=== PATIENT | female | born 1970 | race Caucasian/White ===

== ENCOUNTER → 2018-08-08 | Day surgery (SDC) | payer OTHER ==
[~2018-08-08] MED LIST: CALCIUM CARBON500 MG PO; DEXILANT30 MG PO; DICYCLOMINE HCL20 MG PO; FENTANYL CITRATE/PF 100MCG/2 ML INJ ONE; FERROUS SULFAT325 M1 PO; FISH OIL PO; FLONASE INH; GABAPENTIN PO; GLUCAGON FOR INJ 1 MG VIAL ONE; HYOSCYAMINE SULFATE 0.5 MG/ML INJ ONE; MELOXICAM7.5 MG PO; METHOCARBAMOL500 MG PO; METOCLOPRAMIDE HCL 10 MG/2ML VIAL ONE; MIDAZOLAM HCL 2 MG/2 ML VIAL ONE; MULTI-VITAMIN1 EACH PO; NEXIUM40 MG PO; ONDANSETRON HCL INJ 2MG/ML 2ML 2 MG/ML VIAL ONE; PROMETHAZINE HCL (IM) 25 MG/ML VIAL ONE; PROPOFOL IV EMULSION 10 MG/ML 20 ML VIAL ONE; PROPOFOL IV EMULSION 10 MG/ML 50 ML VIAL ONE; SM NATURAL BAL100 MG PO; TYLENOL EXTRA500 MG PO; VIT C PO; VIT D3 PO; VITAMIN B-122500 MCG PO; VITAMIN E400 UNI1 PO; VSL#3 CAPSULE1 EACH PO; WELLBUTRIN XL300 MG PO; ZYRTEC10 MG PO; [UNRECOGNIZED DRUG - OTHER] PO
--- OUTSIDE RECORDS SUMMARY | 2018-08-08 12:04 | XMS REPORT ---
Author Author [facility] Address Unknown Phone Unavailable Care Team Providers Care Chute Operator Name Role Phone Unavailable Unavailable Problems This patient has no known problems. Allergies, Adverse Reactions, Alerts This patient has no known allergies or adverse reactions. Medications This patient has no known medications. Results Test Description Test Time Test Comments Text Results Atomic Results Result Comments SCR MAMM BILATERAL [place] CAD DIGITAL 2018-03-07 10:05:25 - SCR MAMM BILATERAL [place] CAD DIGITALBILATERAL DIGITAL SCREENING MAMMOGRAM 3D/2D WITH CAD: 03/05/2018CLINICAL: Asymptomatic. Digital breast tomosynthesis was performed in addition to routine CC and MLO views. Current mammographic images were evaluated by either a [employer] M-Vu or a [employer] ImageChecker CAD (computer aided detection system). Comparison is made to exams dated 03/04/2017 mammogram, mammogram, and 12/23/2014 mammogram - [facility]. There are scattered fibroglandular tissues in both breasts. No suspicious mass, architectural distortion, malignant type calcification, or lymph node abnormality detected. Breast architecture is stable compared to prior exams.IMPRESSION: NEGATIVEThere is no mammographic evidence of malignancy. Resume annual screening mammography in one year. Ines carney/penrad:03/07/2018 10:05:25 Surface Water Manager: Laurie PRAKASH, [facility] sent: BIRADS 1-2 Normal Mammogram BI-RADS: 1 Negative
[2018-08-08 17:30] VITALS: BP 115/75
--- NOTE | 2018-08-08 18:10 | Operative Report ---
DATE OF PROCEDURE: 08/08/2018 SURGEON: Dirk Portillo MD PROCEDURES: Esophagogastroduodenoscopy with biopsies and colonoscopy with polypectomy and biopsies. INDICATIONS FOR EGD: Upper abdominal pain, nausea. INDICATIONS FOR COLONOSCOPY: Surveillance colonoscopy, personal history of colon polyps, constant urge to defecate. MEDICATIONS: The patient was done under MAC, please see anesthesiologist's note. PROCEDURE IN DETAIL: With the patient in left lateral decubitus position, flexible fiberoptic Olympus gastroscope was introduced into the esophagus under direct visualization without any difficulty. There were some erosions noted in the distal esophagus. The scope was then advanced with ease into the stomach traversing a small hiatal hernia. The patient is apparently status post gastric sleeve. A minute nodule was noted in the upper body of the stomach and that was biopsied. Mucosa overlying the antrum revealed some patchy erythema and [id number] edema and biopsies were obtained and sent to stain for H pylori. Pylorus was of normal contour and shape, it was intubated with ease and the scope was advanced all the way to the second portion of the duodenum. Biopsies were obtained from the proximal second portion and duodenal bulb to rule out sprue. The scope was then withdrawn back into the stomach and retroflexed and the previously described hiatal hernia was also noted in the retroflexed position. The scope was then straightened out, it was subsequently withdrawn. The patient tolerated the procedure well. IMPRESSION: 1. Distal erosive esophagitis. 2. Moderate-sized hiatal hernia. 3. Status post gastric sleeve. 4. Nodule proximal body, biopsied. 5. Gastritis, biopsied, biopsies sent to stain for Helicobacter pylori. 6. Rule out sprue. PLAN: Follow up histology. Increase Nexium to 40 mg one p.o. a.c. b.i.d. PROCEDURE IN DETAIL: The patient was then turned around after adequate lubrication of the anal canal, a flexible fiberoptic Olympus colonoscope was inserted into the rectum with ease and advanced all the way to the cecum. Mucosa overlying the cecum appeared to be within normal limits. The ileocecal valve was intubated and the scope was advanced into the terminal ileum. Biopsies were obtained. The scope was then withdrawn back into the colon. It was then withdrawn slowly and mucosa overlying the ascending, transverse grossly appeared to be within normal limits as whatever was visualized in the descending colon. Two polyps were hot biopsied from the sigmoid colon. Three polyps were hot biopsied from the rectum. There were some patchy mild inflammatory changes noted in the rectum and biopsies were obtained. The scope was then retroflexed into the distal rectum and small internal hemorrhoids were noted, none of which was actively bleeding. The scope was then straightened out, it was subsequently withdrawn. The patient tolerated the procedure well. IMPRESSION: 1. Sigmoid colon polyps x2, hot biopsied. 2. Rectal polyps x3, hot biopsied. 3. Proctitis, mild, biopsies obtained. 4. Internal hemorrhoids, none actively bleeding. PLAN: Follow up histology. Initiate high-fiber, low-fat diet. Initiate high-fiber supplement. Start VSL#3 one p.o. daily. The patient might benefit from a followup colonoscopy in 3 to 5 years. Dirk Portillo MD [facility] /[id number] cc: Chintan Renteria MD
== END | disposition home or self-care (01) ==
LOC: ENDO 12:02
PROVIDERS: ATTEND Internal Medicine Gastroenterology
DX: K21.0 Gastro-esophageal reflux disease with esophagitis (principal); K63.5 Polyp of colon; K62.1 Rectal polyp; K29.70 Gastritis, unspecified, without bleeding; K22.10 Ulcer of esophagus without bleeding; K44.9 Diaphragmatic hernia without obstruction or gangrene; Z98.84 Bariatric surgery status; K31.89 Other diseases of stomach and duodenum; K62.89 Other specified diseases of anus and rectum; K64.8 Other hemorrhoids; R03.0 Elevated blood-pressure reading, without diagnosis of hypertension
CPT/HCPCS: 43239; 45380; 45384; 81025; J1610; J1980; J2250; J2405; J2550; J2704 ×2; J2765; 45378; 45385; J3010

== ENCOUNTER 2018-10-05 10:08 | Observation (INO) | payer OTHER ==
[2018-10-03 09:52] LABS: BILIRUBIN,URINE NEGATIVE (NEGATIVE); CLARITY,URINE CLEAR (CLEAR); COLOR,URINE YELLOW (YELLOW); KETONES,URINE NEGATIVE (NEGATIVE); LEUKOCYTE ESTERASE ,URINE NEGATIVE (NEGATIVE); NITRITE,URINE NEGATIVE (NEGATIVE); PROTEIN,URINE DIPSTICK NEGATIVE (NEGATIVE); URINE UROBILINOGEN 0.2 mg/dL (0.2 - 1)
[2018-10-03 09:54] LABS: EOSINOPHILS # (AUTO) 0.1 (0.0-0.4); EOSINOPHILS % 1.7 % (0.0-6.0); HEMATOCRIT 34.2 % (34.2-44.1); HEMOGLOBIN 11.7 g/dL (12.0-16.0); LYMPHOCYTES # (AUTO) 1.4 (1.0-3.2); LYMPHOCYTES % 35.1 % (18.0-39.1); MEAN CORPUSCULAR HGB CONC 34.2 g/dL (31-35); MEAN CORPUSCULAR VOLUME 93.4 fL (81-99); MONOCYTES # (AUTO) 0.3 (0.2-0.8); MONOCYTES % 7.2 % (4.4-11.3); NEUTROPHILS # (AUTO) 2.2 (2.1-6.9); NEUTROPHILS % 54.8 % (38.7-80.0); PLATELET COUNT 188 x10e3/uL (140-360); RED BLOOD COUNT 3.66 x10e6/uL (3.6-5.1); RED CELL DISTRIBUTION WIDTH 12.3 % (11.7-14.4)
[2018-10-03 10:10] LABS: ANION GAP 12.3 mmol/L (8-16); BLOOD UREA NITROGEN 15 mg/dL (7-26); BUN/CREATININE RATIO 20 (6-25); CALCIUM 9.8 mg/dL (8.4-10.2); CARBON DIOXIDE 29 mmol/L (22-29); CHLORIDE 102 mmol/L (98-107); CREATININE, SERUM 0.75 mg/dL (0.57-1.11); EST GLOMERULAR FILTRATION RATE > 60 ML/MIN (60-); GLUCOSE 77 mg/dL (74-118); POTASSIUM 4.3 mmol/L (3.5-5.1); SODIUM 139 mmol/L (136-145)
--- NOTE | 2018-10-03 11:38 | Diagnostic Imaging Report ---
EXAM: CHEST 2 VIEWS DATE: 10/03/2018 9:19 AM INDICATION: Gynecologic surgery ^PRE-OP ORDERS ^[id number] ^[id number] COMPARISON: None FINDINGS: Lines and tubes: None Heart size normal. No focal pulmonary opacity, pleural effusion or pneumothorax. Upper abdomen unremarkable. There are surgical clips in the upper abdomen. There is partially visualized cervical spine fusion hardware. Metallic anchors are seen in the right humeral head. IMPRESSION: No evidence for acute disease. Signed by: Dr. Kamran Reynolds M.D. on 10/03/2018 11:35 AM
[~2018-10-05] VITALS: Ht 162.6 cm; Wt 68.0 kg
[~2018-10-05 10:08] MED LIST changes: -FENTANYL CITRATE/PF 100MCG/2 ML INJ ONE; -GLUCAGON FOR INJ 1 MG VIAL ONE; -HYOSCYAMINE SULFATE 0.5 MG/ML INJ ONE; -METOCLOPRAMIDE HCL 10 MG/2ML VIAL ONE; -MIDAZOLAM HCL 2 MG/2 ML VIAL ONE; -ONDANSETRON HCL INJ 2MG/ML 2ML 2 MG/ML VIAL ONE; -PROMETHAZINE HCL (IM) 25 MG/ML VIAL ONE; -PROPOFOL IV EMULSION 10 MG/ML 20 ML VIAL ONE; -PROPOFOL IV EMULSION 10 MG/ML 50 ML VIAL ONE
[2018-10-05] MEDS ORDERED: VASOPRESSIN INJ 20 UNIT/ML VIAL ONE (11:00)
[2018-10-05] MEDS ORDERED: LIDOCAINE HCL 1% 2 ML AMP ONE (11:03)
[2018-10-05] MEDS: CEFAZOLIN SOD 1 GM/NS 50ML 100 ML IV ONE (11:15)
[2018-10-05] MEDS ORDERED: BUPIVACAINE 0.25%/EPI 30ML SDV INJ ONE (11:35)
[2018-10-05] MEDS ORDERED: ESTROGENS CONJUGATED VAGINAL CR 45 GM TUBE PV ONE (11:35)
[2018-10-05] MEDS ORDERED: SODIUM CHLORIDE 0.9% INJ 10 ML VIAL ONE (13:27)
[2018-10-05] MEDS ORDERED: IBUPROFEN 800MG/ 250ML 250 ML IV ONE (13:54)
[2018-10-05] MEDS ORDERED: MEPERIDINE HCL INJ 25 MG/ML VIAL ONE (15:45)
[2018-10-05] MEDS ORDERED: FENTANYL CITRATE/PF 100MCG/2 ML INJ ONE ×2 (15:51→18:46)
[2018-10-05] MEDS ORDERED: SIMETHICONE 80 MG CHEW PO PRN (16:00)
[2018-10-05] MEDS ORDERED: KETOROLAC TROMETHAMINE 30 MG/ML VIAL IV PRN (16:00)
[2018-10-05] MEDS ORDERED: FLONASE INH SCH (16:00)
[2018-10-05] MEDS ORDERED: DOCUSATE SODIUM 100 MG CAP PO PRN (16:00)
[2018-10-05] MEDS ORDERED: ONDANSETRON HCL INJ 2MG/ML 2ML 2 MG/ML VIAL IV PRN (16:00)
[2018-10-05] MEDS ORDERED: DIPHENHYDRAMINE HCL 25 MG CAP PO PRN (16:00)
[2018-10-05] MEDS ORDERED: BISACODYL 10 MG SUPP PR PRN (16:00)
[2018-10-05 16:24] VITALS: BP 109/50
[2018-10-05] MEDS ORDERED: MORPHINE SULFATE INJ 4 MG/ML INJ 1ML IM PRN (16:45)
[2018-10-05] MEDS: D5.45%NS/KCL 20MEQ 1,000 ML IV SCH (16:52)
[2018-10-05] MEDS ORDERED: FLUTICASONE PROPIONATE NASAL SPRAY NS PRN (17:00)
[2018-10-05] MEDS: LACT CMB2 PO SCH (17:06)
[2018-10-05] MEDS: S THERMOPHL PO SCH (17:06)
[2018-10-05] MEDS: BIF CMB1 PO SCH (17:06)
[2018-10-05 17:20] VITALS: BP 109/50
[2018-10-05 17:29] VITALS: BP 109/50
[2018-10-05] MEDS ORDERED: MIDAZOLAM HCL 2 MG/2 ML VIAL ONE (18:46)
[2018-10-05] MEDS ORDERED: NEOSTIGMINE 5 MG/5ML SYR ONE (18:52)
[2018-10-05] MEDS ORDERED: SEVOFLURANE INHAL SOLN 250 ML PEN BTL ONE (18:52)
[2018-10-05] MEDS ORDERED: GLYCOPYRROLATE INJ 1MG/ 5 ML SYR ONE (18:52)
[2018-10-05] MEDS ORDERED: LIDOCAINE HCL 2% LOCAL INJ 5 ML SDV VIAL INJ ONE (18:52)
[2018-10-05] MEDS ORDERED: PROPOFOL IV EMULSION 10 MG/ML 20 ML VIAL ONE (18:52)
[2018-10-05] MEDS ORDERED: ONDANSETRON HCL INJ 2MG/ML 2ML 2 MG/ML VIAL ONE (18:52)
[2018-10-05] MEDS ORDERED: DEXAMETHASONE SOD PHOS INJ 4 MG/ML VIAL ONE (18:52)
[2018-10-05] MEDS ORDERED: ROCURONIUM BROMIDE 10 MG/ML 5ML VIAL ONE (18:52)
--- NOTE | 2018-10-05 18:58 | Operative Report ---
DATE OF PROCEDURE: 10/05/2018 SURGEON: Jose M Bhatt MD PREOPERATIVE DIAGNOSES: Abnormal uterine bleeding, dysmenorrhea, failed endometrial ablation. POSTOPERATIVE DIAGNOSES: Abnormal uterine bleeding, dysmenorrhea, failed endometrial ablation. TITLE OF PROCEDURE: Total laparoscopic hysterectomy, bilateral salpingectomy. No oophorectomy was performed. DECK AND HULL ASSEMBLER CO-SURGEON: Dr. Wojciech Valencia. ANESTHESIA: General with Dr. Marley and Barney, assistant sales manager. INDICATION FOR THE OPERATION: The patient is a 47-year-old 3, para 2-0-1-2 with last menstrual period October 01, 2018, who presents with a history of abnormal uterine bleeding, dysmenorrhea, who underwent endometrial ablation and hysteroscopic myomectomy on February 06, 2015, who presents now with a history of continued abnormal bleeding and continued dysmenorrhea. She therefore requests laparoscopic hysterectomy secondary to failed ablation of the endometrium. She is to undergo laparoscopic hysterectomy and bilateral salpingectomy. She does not want the ovaries removed. She was therefore taken to the operating room at this time. FINDINGS OF SURGERY: There was 8-week size mobile uterus. No adhesions noted despite multiple upper abdominal surgeries and there was normal tubes and ovaries. DESCRIPTION OF PROCEDURE: The patient was taken to the operating room, placed on the table in supine position. General anesthesia was administered. The patient was placed in the lithotomy position. The perineum was prepared and draped in usual sterile manner as was the abdomen. A Jeffers catheter was placed. The bladder for constant drainage. Pelvic exam revealed an 8-week size mobile anteverted uterus. No adnexal masses. The cervix was grasped with single-tooth tenaculum. A large VCare device was placed over the cervix for manipulation. The balloon was blown up and then it was apparent that the VCare was in place, the dowel sticker operator changed gloves. We proceeded to laparoscopy. A small incision was made just inferior to the umbilicus in the midline. The Veress needle was inserted through the incision into the peritoneal cavity. Pneumoperitoneum was created by insufflation of 4 L of carbon dioxide gas and a filling pressure of 8-10 mmHg. The Veress needle was removed and the trocar was inserted through the incision into the peritoneal cavity. The trocar was removed. The laparoscope was placed with confirmation of the peritoneal cavity being entered. Second trocar was placed in the right lower quadrant under direct visualization by laparoscopy. These two trocars were 5 mm and then a 10 mm trocar was placed in the left lower quadrant under direct visualization by laparoscopy. The probes were placed and the contents of the abdomen and pelvis were visualized with the findings of 8-week size mobile uterus, normal tubes and ovaries. Attention was then turned to the mesosalpinx on the left. The LigaSure instrument was then used to clamp the mesosalpinx, coagulating and cutting until the entire tube was from the ovary and then we clamped along the broad ligament and then coagulated and cut and then the round ligament was clamped, coagulated, and cut and we opened the anterior peritoneum, coagulating and cutting from round ligament to round ligament and then at this point, we proceeded to place the LigaSure instrument on the right side. Again, the mesosalpinx was identified, clamping and cutting the tube away from the ovary and then clamping and cutting the mesosalpinx until the tube was completely free and then the broad ligament on the right side was clamped and coagulated and cut and then the round ligament was clamped, coagulated, and cut and then the anterior peritoneum was opened to the previous incision from the other side. Then the VCare was brought up and was identified. At this point, the uterine vessels were skeletonized and they were clamped, coagulated, and then cut as close to the uterus as possible and this was done on both sides and this was done after the bladder was brought down by blunt manipulation. At this point, we were able to visualize the VCare through the peritoneal tissue and we were able to identify the uterosacral ligaments on each side and we used the L hook to coagulate around the VCare until the uterus was completely from its attachments. The uterus and the tubes and the ovaries were left behind with good hemostasis and evidence of the ovarian vessels and at this point, the uterus was removed and then the vaginal cuff was closed using an Endo stitch of five stitches were placed in the vaginal cuff. They were tied off and good hemostasis and evidence was noted of the vaginal cuff and then we irrigated and suctioned, found no evidence of any bleeding. At this point, Dr. Valencia performed cystoscopy first to fill the bladder with fluid and noted that the bladder was intact and then he put the cystoscope in, identified the entire bladder, noted no evidence of any injuries and looked at the ureteral implantation sites noticing good urine flow at the entrance of the ureters to the bladder and no evidence of any bleeding. At this point, the procedure was deemed terminated. A Jeffers catheter was placed in the bladder for constant drainage and all the air and instruments were removed from the abdomen. The skin incisions were closed with interrupted stitches of 4-0 Monocryl. There were no complications noted. Estimated blood loss was 50 mL. The patient tolerated the procedure well, was transferred from the operating room to the recovery room in stable condition. MD JOYA Guzman/MODL /[id number]
--- NOTE | 2018-10-05 19:10 | NUR ---
Got report from previous nurse. call light within reach. patient in bed.
[2018-10-05] MEDS: CEFAZOLIN SOD 2 GM in SODIUM CHLORIDE 0.9% 100 ML 100 ML IV SCH (19:33)
[2018-10-05 20:00] VITALS: BP 131/59
[2018-10-05] MEDS: CALCIUM CARBONATE 500 MG CHEWABLE TABS PO SCH (21:49)
[2018-10-05] MEDS ORDERED: CEFAZOLIN SOD 1 GM VIAL IV SCH (22:00)
[2018-10-06] VITALS: BP 115/57
[2018-10-06 00:30] VITALS: BP 115/51
[2018-10-06] MEDS: D5.45%NS/KCL 20MEQ 1,000 ML IV SCH (00:30)
[2018-10-06] MEDS: CEFAZOLIN SOD 2 GM in SODIUM CHLORIDE 0.9% 100 ML 100 ML IV SCH ×2 (02:55→09:26)
[2018-10-06 04:00] VITALS: BP 118/60
--- NOTE | 2018-10-06 05:15 | NUR ---
Took out Jeffers according to physician's orders. patient in no pain or distress. Patient mentions she feels great without the Jeffers
[2018-10-06 05:20] LABS: BASOPHILS % 0.2 % (0.0-1.0); HEMATOCRIT 32.6 % (34.2-44.1); HEMOGLOBIN 11.4 g/dL (12.0-16.0); LYMPHOCYTES # (AUTO) 0.9 (1.0-3.2); LYMPHOCYTES % 8.4 % (18.0-39.1); MEAN CORPUSCULAR HEMOGLOBIN 31.8 pg (28-32); MEAN CORPUSCULAR VOLUME 91.1 fL (81-99); MONOCYTES # (AUTO) 0.5 (0.2-0.8); MONOCYTES % 4.9 % (4.4-11.3); NEUTROPHILS # (AUTO) 9.4 (2.1-6.9); NEUTROPHILS % 86.1 % (38.7-80.0); PLATELET COUNT 183 x10e3/uL (140-360); RED BLOOD COUNT 3.58 x10e6/uL (3.6-5.1); RED CELL DISTRIBUTION WIDTH 12.2 % (11.7-14.4)
[2018-10-06 05:41] LABS: ANION GAP 12.4 mmol/L (8-16); BLOOD UREA NITROGEN 7 mg/dL (7-26); BUN/CREATININE RATIO 9 (6-25); CALCIUM 9.1 mg/dL (8.4-10.2); CARBON DIOXIDE 25 mmol/L (22-29); CHLORIDE 104 mmol/L (98-107); CREATININE, SERUM 0.74 mg/dL (0.57-1.11); EST GLOMERULAR FILTRATION RATE > 60 ML/MIN (60-); GLUCOSE 134 mg/dL (74-118); POTASSIUM 4.4 mmol/L (3.5-5.1); SODIUM 137 mmol/L (136-145)
--- NOTE | 2018-10-06 07:02 | NUR ---
Gave report to oncoming nurse. Patient asleep in bed. Call light within reach.
--- NOTE | 2018-10-06 07:18 | NUR ---
Patient urinated after removed mullins, not in any discomfort
[2018-10-06 07:20] VITALS: BP 98/47
[2018-10-06] MEDS ORDERED: LORATADINE 10 MG TAB PO SCH (09:00)
[2018-10-06] MEDS ORDERED: PANTOPRAZOLE SOD 40 MG TABEC PO SCH (09:00)
[2018-10-06] MEDS: LACT CMB2 PO SCH (09:00)
[2018-10-06] MEDS: BIF CMB1 PO SCH (09:00)
[2018-10-06] MEDS: S THERMOPHL PO SCH (09:00)
[2018-10-06] MEDS: CALCIUM CARBONATE 500 MG CHEWABLE TABS PO SCH (09:00)
[2018-10-06] MEDS ORDERED: MULTIVITAMINS/MINERALS TAB PO SCH (09:00)
[2018-10-06 09:28] VITALS: BP 98/47
--- NOTE | 2018-10-06 10:50 | NUR ---
Patient discharged home, Alert with no distress, laparoscopic incision site on abdomen is intact, abdomen soft, IV canula removed with tip intact, no ss of infiltration, no prescriptions as per Dr Bhatt , at bed side to give ride, transported via wheelchair to [facility]
== END 2018-10-06 10:53 | disposition home or self-care (01) ==
LOC: OR 10:08 → PACU V 15:56 → IMCU 16:27
PROVIDERS: ADMIT Obstetrics & Gynecology; ATTEND Obstetrics & Gynecology
DX: N93.9 Abnormal uterine and vaginal bleeding, unspecified (principal); N85.8 Other specified noninflammatory disorders of uterus; D25.2 Subserosal leiomyoma of uterus; N83.8 Other noninflammatory disorders of ovary, fallopian tube and broad ligament; K21.9 Gastro-esophageal reflux disease without esophagitis
CPT/HCPCS: 36415 ×2; 58571; 71046; 80048 ×2; 81003; 84702; 85025 ×2; 86850; 86900; 88307; 93005; G0378 ×2; J0690 ×3; J1100; J1885; J2001 ×2; J2175; J2250; J2270; J2405; J2704; J3010; J3490

== ENCOUNTER → 2019-10-04 | Outpatient (CLI) | payer OTHER ==
[~2019-10-04] MED LIST changes: +CARAFATE1 GM/10 ML PO; +CLARITIN-D 241 EACH PO; +IOPAMIDOL 370 MG/ML 200 ML INFUS..BTL INJ ONE; +MULTIVITAMINS1 EAC4 PO; +PANTOPRAZOLE SO40 MG PO; +SINGULAIR10 MG PO; +SODIUM CHLORIDE 0.9% 50ML 50 ML ONE; +STOOL SOFTENER100 M1 PO; +TURMERIC538 MG PO; +ZOFRAN4 MG PO
--- NOTE | 2019-10-04 08:55 | Diagnostic Imaging Report ---
CT of the abdomen and pelvis, with contras. History: Abdominal pain. Comparison: None available. Technique: Multidetector CT scanning of the abdomen and pelvis was performed from the level of the lung bases to the inferior pubic rami after intravenous administration of contrast. Coronal and sagittal multiplanar reformations were obtained. RADIATION DOSE: Total DLP: 302.98 mGy*cm Dose modulation, iterative reconstruction, and/or weight based adjustment of the mA/kV was utilized to reduce the radiation dose to as low as reasonably achievable. Findings: The visualized intrathoracic contents are unremarkable. The liver is normal in size and attenuation without evidence for focal abnormality. The gallbladder is surgically absent. There is no biliary ductal dilatation. Granulomas calcifications are noted within the spleen which is otherwise unremarkable. The pancreas and bilateral adrenal glands are unremarkable. There are postsurgical changes of the GE junction from suspected sleeve gastrectomy. There is a small hiatal hernia present. The kidneys are normal in size and location and enhance symmetrically. There is no evidence for nephrolithiasis or hydronephrosis. A subcentimeter hypodensity is identified within the right kidney which is to small to definitively characterize but may represent a small cyst. No ureteral stone or dilatation is appreciated. The urinary bladder demonstrates no significant abnormalities. The uterus is not visualized and likely surgically absent. There is a 1.7 x 2.6 cm cystic structure identified within the left adnexa which given size and appearance is almost certainly benign. No follow-up examination is warranted. No other abnormal adnexal masses are identified. The abdominal aorta is normal course and caliber. The IVC is unremarkable. Please note that evaluation the bowel is limited without the use of enteric contrast material. The visualized loops of small and large bowel demonstrate no evidence of obstruction or inflammation. Moderate colonic stool burden noted. The appendix is not definitively visualized but there is no evidence of inflammation within its expected course of the right lower quadrant. There is no ascites or intraperitoneal free air. No abnormally enlarged lymph nodes are identified within the abdomen or pelvis. There is minimal anterolisthesis of L4 on L5. The osseous structures demonstrate no evidence for acute fracture or destructive process. The extraperitoneal soft tissues are unremarkable. IMPRESSION: No acute abdominopelvic process identified to correlate with the patient's abdominal pain. Post surgical changes from prior sleeve gastrectomy, cholecystectomy, and hysterectomy. Signed by: Dr. Kushal Caldera MD on 10/04/2019 8:52 AM
== END ==
LOC: CT 07:27
PROVIDERS: ATTEND Internal Medicine Gastroenterology
DX: R10.9 Unspecified abdominal pain (principal)
CPT/HCPCS: 74177; Q9967

== ENCOUNTER → 2019-10-16 | Day surgery (SDC) | payer OTHER ==
[~2019-10-16] MED LIST changes: +ETOMIDATE 2 MG/ML 10 ML INJ IV ONE; -IOPAMIDOL 370 MG/ML 200 ML INFUS..BTL INJ ONE; +LIDOCAINE HCL 2% LOCAL INJ 5 ML SDV VIAL INJ ONE; +METOCLOPRAMIDE HCL 10 MG/2ML VIAL ONE; +ONDANSETRON HCL INJ 2MG/ML 2ML 2 MG/ML VIAL ONE; +PANTOPRAZOLE 40 MG 10ML VIAL ONE; +PROPOFOL IV EMULSION 10 MG/ML 20 ML VIAL ONE; -SODIUM CHLORIDE 0.9% 50ML 50 ML ONE
[2019-10-16 15:00] VITALS: BP 95/46
--- NOTE | 2019-10-16 15:03 | Operative Report ---
DATE OF PROCEDURE: 10/16/2019 SURGEON: Dirk Portillo MD PROCEDURE: EGD with biopsies. INDICATIONS FOR PROCEDURES: Upper abdominal pain, acid reflux, retrosternal chest pain. MEDICATIONS: The patient was done under MAC, please see anesthesiologist's note. PROCEDURE IN DETAIL: With the patient in left lateral decubitus position, a flexible fiberoptic Olympus gastroscope was introduced into the esophagus under direct visualization without any difficulty. There was some patchy erythema noted in distal esophagus. The scope was then advanced with ease into the stomach, traversing approximately 5 cm sized hiatal hernia. The patient is status post gastric sleeve. Mucosa overlying the antrum and the body revealed some patchy intense erythema and moderate edema, and biopsies were obtained, sent to stain for H. pylori. Pylorus was intubated with ease and the scope was advanced all the way to the second portion of the duodenum. Biopsies were obtained from the proximal second portion and the duodenal bulb. The scope was then withdrawn back into the stomach, was then withdrawn. The patient tolerated the procedure well. IMPRESSION: 1. Distal esophagitis. 2. 5 cm hiatal hernia. 3. Status post gastric sleeve, gastritis, biopsied. PLAN: 1. Follow up histology. 2. Continue Protonix 40 mg one p.o. a.c. b.i.d. and Carafate 1 g p.o. a.c. t.i.d. and at bedtime. Dirk Portillo MD [facility] /[id number] cc: Chintan Renteria MD
== END | disposition home or self-care (01) ==
LOC: OR 11:28
PROVIDERS: ATTEND Internal Medicine Gastroenterology
DX: K20.8 Other esophagitis (principal); K29.50 Unspecified chronic gastritis without bleeding; K21.9 Gastro-esophageal reflux disease without esophagitis; K44.9 Diaphragmatic hernia without obstruction or gangrene; Z98.84 Bariatric surgery status; K59.00 Constipation, unspecified; R49.9 Unspecified voice and resonance disorder; R05 Cough; F42.9 Obsessive-compulsive disorder, unspecified; F41.9 Anxiety disorder, unspecified; Z01.812 Encounter for preprocedural laboratory examination; Z11.59 Encounter for screening for other viral diseases; Z68.26 Body mass index [BMI] 26.0-26.9, adult; Z87.891 Personal history of nicotine dependence
CPT/HCPCS: 43239; C9113; J2001; J2405; J2704; J2765; U0002

== ENCOUNTER 2020-05-30 09:22 | Emergency (ER) | payer OTHER ==
[~2020-05-30] VITALS: Ht 162.6 cm; Wt 59.0 kg
[~2020-05-30 09:22] MED LIST changes: -ETOMIDATE 2 MG/ML 10 ML INJ IV ONE; -LIDOCAINE HCL 2% LOCAL INJ 5 ML SDV VIAL INJ ONE; -METOCLOPRAMIDE HCL 10 MG/2ML VIAL ONE; -ONDANSETRON HCL INJ 2MG/ML 2ML 2 MG/ML VIAL ONE; -PANTOPRAZOLE 40 MG 10ML VIAL ONE; -PROPOFOL IV EMULSION 10 MG/ML 20 ML VIAL ONE
[2020-05-30] MEDS ORDERED: ONDANSETRON HCL INJ 2MG/ML 2ML 2 MG/ML VIAL IV STA (09:45)
[2020-05-30] MEDS ORDERED: PANTOPRAZOLE 40 MG 10ML VIAL IV STA (09:45)
[2020-05-30 09:59] LABS: BASOPHILS % 1.1 % (0.0-1.0); EOSINOPHILS # (AUTO) 0.1 (0.0-0.4); EOSINOPHILS % 2.1 % (0.0-6.0); HEMOGLOBIN 11.3 g/dL (12.0-16.0); LYMPHOCYTES # (AUTO) 1.2 (1.0-3.2); LYMPHOCYTES % 40.8 % (18.0-39.1); MEAN CORPUSCULAR HEMOGLOBIN 30.2 pg (28-32); MEAN CORPUSCULAR HGB CONC 33.2 g/dL (31-35); MEAN CORPUSCULAR VOLUME 90.9 fL (81-99); MONOCYTES # (AUTO) 0.2 (0.2-0.8); MONOCYTES % 7.4 % (4.4-11.3); NEUTROPHILS # (AUTO) 1.4 (2.1-6.9); NEUTROPHILS % 48.6 % (38.7-80.0); PLATELET COUNT 179 x10e3/uL (140-360); RED BLOOD COUNT 3.74 x10e6/uL (3.6-5.1)
[2020-05-30 10:15] LABS: ALANINE AMINOTRANSFERASE 29 IU/L (0-55); ALBUMIN 4.4 g/dL (3.5-5.0); ALBUMIN/GLOBULIN RATIO 1.2 (0.8-2.0); ALKALINE PHOSPHATASE 53 IU/L (40-150); ANION GAP 14.8 mmol/L (8-16); BLOOD UREA NITROGEN 10 mg/dL (7-26); BUN/CREATININE RATIO 13 (6-25); CALCIUM 9.3 mg/dL (8.4-10.2); CARBON DIOXIDE 28 mmol/L (22-29); CHLORIDE 104 mmol/L (98-107); CREATINE KINASE 111 IU/L (29-168); CREATININE, SERUM 0.79 mg/dL (0.57-1.11); EST GLOMERULAR FILTRATION RATE > 60 ML/MIN (60-); GLUCOSE 98 mg/dL (74-118); LIPASE 21 U/L (8-78); MAGNESIUM 1.9 MG/DL (1.3-2.1); POTASSIUM 3.8 mmol/L (3.5-5.1); SODIUM 143 mmol/L (136-145)
[2020-05-30 10:16] LABS: INR 0.89; PROTHROMBIN TIME 12.6 seconds (11.9-14.5)
[2020-05-30 10:17] LABS: PARTIAL THROMBOPLASTIN TIME 33.6 seconds (23.8-35.5)
[2020-05-30] MEDS ORDERED: LIDOCAINE VISC 2% SOLN 15 ML UDC PO ONE (10:30)
[2020-05-30] MEDS ORDERED: BELLADONNA ALK/PHENOBARBITAL 5 ML UDC PO ONE (10:30)
[2020-05-30] MEDS ORDERED: MAGNESIUM/ALUMINUM/SIMETHICONE 30 ML UDC PO ONE (10:30)
[2020-05-30 11:00] VITALS: BP 106/64
== END 2020-05-30 11:02 | disposition home or self-care (01) ==
LOC: ER 10:09
DX: R07.89 Other chest pain (principal); K29.70 Gastritis, unspecified, without bleeding; K29.80 Duodenitis without bleeding; K21.9 Gastro-esophageal reflux disease without esophagitis
CPT/HCPCS: 36415; 71046; 80053; 82550; 82553; 83690; 83735; 84484; 85025; 85610; 85730; 93005; 99283; C9113; J2405

== ENCOUNTER → 2020-06-25 | Day surgery (SDC) | payer OTHER ==
[~2020-06-25] MED LIST changes: +FENTANYL CITRATE/PF 100MCG/2 ML INJ ONE; +LIDOCAINE HCL 2% LOCAL INJ 5 ML SDV VIAL INJ ONE; +METOCLOPRAMIDE HCL 10 MG/2ML VIAL ONE; +MIDAZOLAM HCL 2 MG/2 ML VIAL ONE; +PROPOFOL IV EMULSION 10 MG/ML 20 ML VIAL ONE; +VITAMIN B122500 MCG PO; +VITAMIN D3 PO
[2020-06-25 08:50] VITALS: BP 91/60
== END | disposition home or self-care (01) ==
LOC: OR 06:03
PROVIDERS: ATTEND Internal Medicine Gastroenterology
DX: K29.60 Other gastritis without bleeding (principal); K20.90 Esophagitis, unspecified without bleeding; R49.0 Dysphonia; K44.9 Diaphragmatic hernia without obstruction or gangrene; K21.9 Gastro-esophageal reflux disease without esophagitis; Z98.84 Bariatric surgery status; Z86.010 Personal history of colon polyps; M06.9 Rheumatoid arthritis, unspecified; M79.7 Fibromyalgia; F42.9 Obsessive-compulsive disorder, unspecified; M25.511 Pain in right shoulder; R07.9 Chest pain, unspecified; Z01.812 Encounter for preprocedural laboratory examination; Z20.822 Contact with and (suspected) exposure to COVID-19
CPT/HCPCS: 43239; J2001; J2250; J2704; J2765; J3010; U0002 ×2

== ENCOUNTER 2020-10-22 16:43 | Emergency (ER) | payer OTHER ==
[~2020-10-22] VITALS: Ht 162.6 cm; Wt 59.0 kg
[~2020-10-22 16:43] MED LIST changes: -FENTANYL CITRATE/PF 100MCG/2 ML INJ ONE; -LIDOCAINE HCL 2% LOCAL INJ 5 ML SDV VIAL INJ ONE; -METOCLOPRAMIDE HCL 10 MG/2ML VIAL ONE; -MIDAZOLAM HCL 2 MG/2 ML VIAL ONE; -PROPOFOL IV EMULSION 10 MG/ML 20 ML VIAL ONE
[2020-10-22 17:57] LABS: CLARITY,URINE CLOUDY (CLEAR); COLOR,URINE YELLOW (YELLOW)
[2020-10-22 17:58] LABS: EPITHELIAL CELLS,URINE FEW /LPF; KETONES,URINE TRACE (NEGATIVE); LEUKOCYTE ESTERASE ,URINE NEGATIVE (NEGATIVE); NITRITE,URINE NEGATIVE (NEGATIVE); PROTEIN,URINE DIPSTICK NEGATIVE (NEGATIVE); RBC,URINE 0-5 /HPF (0-5); URIC ACID CRYSTALS,URINE MANY (FEW); URINE UROBILINOGEN 0.2 mg/dL (0.2 - 1); WBC,URINE (MAN) 0-5 /HPF (0-5)
[2020-10-22] MEDS ORDERED: AZO BLADDER CO300 MG PO (18:12)
== END 2020-10-22 18:10 | disposition home or self-care (01) ==
LOC: ER 17:36
DX: R30.0 Dysuria (principal); Z87.440 Personal history of urinary (tract) infections; Z79.899 Other long term (current) drug therapy; Z90.49 Acquired absence of other specified parts of digestive tract; Z98.84 Bariatric surgery status; Z98.1 Arthrodesis status
CPT/HCPCS: 81001; 87086; 99282

== ENCOUNTER 2024-08-01 12:58 | Emergency (ER) | payer SELFPAY ==
[~2024-08-01 12:58] MED LIST changes: +AZO BLADDER CO300 MG PO; +BUPRENORP-NALO1 EAC1 PO; +CYMBALTA30 MG; +ESTRADIOL1 G2; +FOLIC ACID0.4 MG PO; +HYDROCODON-ACE1 EA11 PO; +METHOTREXATE2.5 MG PO; +NEURONTIN400 MG PO; +PLAQUENIL200 MG PO; +PROBIOTIC & AC1 EACH PO; +RELISTOR150 MG; +TIZANIDINE HCL4 M1 PO
== END 2024-08-01 13:17 | disposition short-term general hospital (02) ==
LOC: ER 13:16
DX: M79.671 Pain in right foot (principal)

== ENCOUNTER → 2025-01-08 | Day surgery (SDC) | payer OTHER ==
[~2025-01-08] MED LIST changes: +FENTANYL CITRATE/PF 100MCG/2 ML INJ ONE; +LIDOCAINE HCL 2% LOCAL INJ 5 ML SDV VIAL INJ ONE; +METOCLOPRAMIDE HCL 10 MG/2ML VIAL ONE; +MIDAZOLAM HCL 2 MG/2 ML VIAL ONE; +PROPOFOL IV EMULSION 0 ML IV ONE; +PROPOFOL IV EMULSION 10 MG/ML 20 ML VIAL ONE
[2025-01-08] MEDS: LACTATED RINGER'S 1,000 ML ONE (06:04)
[2025-01-08 07:33] VITALS: TEMP 98.9
[2025-01-08 07:50] VITALS: BP 123/67; PULSE 74; RESP 16; O2SAT 99
== END | disposition home or self-care (01) ==
LOC: ENDO 05:28
PROVIDERS: ATTEND Internal Medicine Gastroenterology
DX: K22.2 Esophageal obstruction (principal); K31.7 Polyp of stomach and duodenum; K44.9 Diaphragmatic hernia without obstruction or gangrene; K21.9 Gastro-esophageal reflux disease without esophagitis; Z98.84 Bariatric surgery status; K59.09 Other constipation; Z86.0100 Personal history of colon polyps, unspecified; M32.9 Systemic lupus erythematosus, unspecified; M54.2 Cervicalgia; M54.9 Dorsalgia, unspecified; N20.0 Calculus of kidney; F41.9 Anxiety disorder, unspecified; F42.9 Obsessive-compulsive disorder, unspecified; Z01.810 Encounter for preprocedural cardiovascular examination; Z79.899 Other long term (current) drug therapy; Z71.89 Other specified counseling; Z71.3 Dietary counseling and surveillance; Z87.891 Personal history of nicotine dependence
CPT/HCPCS: 43239; 43450; 93005; J2003; J2250; J2470; J2704; J2765; J7121